=== PATIENT | male | born 1980 | race Caucasian/White ===

== ENCOUNTER 2019-02-26 13:35 | Outpatient (REF) | payer MEDICAID, SELFPAY ==
[2019-02-26 21:21] LABS: ALT 65 U/L (16-63); AST 41 U/L (15-37); Albumin 3.3 g/dL (3.4-5.0); Alkaline Phosphatase 69 U/L (46-116); Anion Gap 5.9 mmol/L (3-11); BUN 12 mg/dL (7-18); Bilirubin, Total 0.6 mg/dL (0.2-1.0); CO2 33.1 mmol/L (21.0-32.0); CREATININE 0.95 mg/dL (0.70-1.30); Calcium 9.1 mg/dL (8.5-10.1); Calculated LDL 124 mg/dL; Chloride 103 mmol/L (98-107); Cholesterol 219 mg/dL (<200); Glucose 105 mg/dL (74-106); HDL Cholesterol 40 mg/dL (40-60); Potassium 4.7 mmol/L (3.5-5.1); Sodium 142 mmol/L (136-145); Total Protein 7.1 g/dL (6.4-8.2); Triglyceride 278 mg/dL (<150)
== END 2019-02-26 13:55 ==
LOC: NCHCN 13:35
PROVIDERS: PCP Registered Nurse; Visit Provider Registered Nurse
DX: E78.2 Mixed hyperlipidemia (principal); E66.9 Obesity, unspecified
CPT/HCPCS: 80053; 80061

== ENCOUNTER 2020-01-25 17:49 | Outpatient (REF) | payer MEDICAID, SELFPAY ==
[2020-01-25 21:16] LABS: Hemoglobin A1C 5.2 % (<5.7)
[2020-01-25 21:32] LABS: ALT 77 U/L (16-63); AST 78 U/L (15-37); Albumin 3.8 g/dL (3.4-5.0); Alkaline Phosphatase 63 U/L (46-116); BUN 30 mg/dL (7-18); Bilirubin, Total 0.5 mg/dL (0.2-1.0); CREATININE 1.21 mg/dL (0.70-1.30); Calcium 9.1 mg/dL (8.5-10.1); Calculated LDL 97 mg/dL (<100); Chloride 103 mmol/L (98-107); Cholesterol 198 mg/dL (<200); Glucose 113 mg/dL (74-106); HDL Cholesterol 41 mg/dL (40-60); Potassium 4.6 mmol/L (3.5-5.1); Sodium 135 mmol/L (136-145); Total Protein 7.5 g/dL (6.4-8.2); Triglyceride 304 mg/dL (<150)
[2020-01-30 15:59] LABS: Testosterone, Free 2.88 ng/dL (4.46-17.1); Testosterone, Total 115 ng/dL (240-950)
== END 2020-01-25 18:09 ==
LOC: NCHCN 17:49
PROVIDERS: PCP Registered Nurse; Visit Provider Registered Nurse
DX: E66.9 Obesity, unspecified (principal); E29.1 Testicular hypofunction; R68.82 Decreased libido
CPT/HCPCS: 80053; 80061; 84402; 84403; 83036

== ENCOUNTER 2020-03-14 18:31 | Outpatient (REF) | payer MEDICAID, SELFPAY ==
[2020-03-14 18:02] LABS: HCT 44.5 % (40.0-50.0); HGB 14.6 g/dL (13.5-17.5); MCH 32.5 pg (27.0-33.0); MCHC 32.8 % (32.0-36.0); MCV 99.1 fL (80-95); MPV 10.4 fL (8.0-11.0); Platelet Count 224 10^3/uL (130-400); RBC 4.49 10^6/uL (4.36-5.78); RDW 12.9 % (11.8-14.1); RDW-SD 47.1 fL; WBC 15.16 10^3/uL (4.4-10.8)
[2020-03-14 18:41] LABS: TSH 1.03 uIU/mL (0.36-3.74)
[2020-03-17 11:06] LABS: FSH 2.9 mIU/mL (1.4-18.1)
[2020-03-17 11:10] LABS: LH 2.5 mIU/mL (1.5-9.3)
[2020-03-19 11:39] LABS: Testosterone, Total 161 ng/dL (240-950)
== END 2020-03-14 18:51 ==
LOC: NCHCN 18:31
PROVIDERS: PCP Registered Nurse; Visit Provider Registered Nurse
DX: R68.82 Decreased libido (principal); E29.1 Testicular hypofunction; I10 Essential (primary) hypertension; E78.2 Mixed hyperlipidemia; Z68.41 Body mass index [BMI] 40.0-44.9, adult; M79.18 Myalgia, other site
CPT/HCPCS: 84403; 85027; 83001; 83002; 84443

== ENCOUNTER 2021-07-08 10:54 | Outpatient (REF) | payer MEDICAID, SELFPAY ==
[2021-07-08 14:40] LABS: ALT 57 U/L (16-63); AST 41 U/L (15-37); Albumin 3.8 g/dL (3.4-5.0); Alkaline Phosphatase 73 U/L (46-116); Anion Gap 10.8 mmol/L (3-11); BUN 25 mg/dL (7-18); CO2 27.2 mmol/L (21.0-32.0); Calcium 8.9 mg/dL (8.5-10.1); Calculated LDL 104 mg/dL (<100); Chloride 101 mmol/L (98-107); Cholesterol 210 mg/dL (<200); Glucose 121 mg/dL (74-106); HDL Cholesterol 40 mg/dL (40-60); Potassium 4.7 mmol/L (3.5-5.1); Sodium 139 mmol/L (136-145); Total Protein 7.7 g/dL (6.4-8.2); Triglyceride 334 mg/dL (<150)
[2021-07-08 14:45] LABS: Hemoglobin A1C 5.4 % (<5.7)
[2021-07-08 14:52] LABS: Bilirubin, Total 0.6 mg/dL (0.2-1.0)
== END 2021-07-08 10:55 | disposition home or self-care (01) ==
LOC: NCHCN 10:54
PROVIDERS: PCP Registered Nurse; Visit Provider Registered Nurse
DX: E78.2 Mixed hyperlipidemia (principal); I10 Essential (primary) hypertension; F17.200 Nicotine dependence, unspecified, uncomplicated; Z13.1 Encounter for screening for diabetes mellitus; Z83.3 Family history of diabetes mellitus
CPT/HCPCS: 80053; 80061; 83036

== ENCOUNTER 2024-11-15 09:13 | Outpatient (REF) | payer MEDICAID, SELFPAY ==
[2024-11-15 15:19] LABS: Hemoglobin A1C 5.2 % (<5.7)
[2024-11-15 15:26] LABS: ALT 66 U/L (16-63); AST 52 U/L (15-37); Albumin 3.8 g/dL (3.4-5.0); Alkaline Phosphatase 65 U/L (46-116); Anion Gap 7.3 mmol/L (3-11); BUN 28 mg/dL (7-18); Bilirubin, Total 0.4 mg/dL (0.2-1.0); CO2 28.7 mmol/L (21.0-32.0); Calcium 9.6 mg/dL (8.5-10.1); Calculated LDL 152 mg/dL (<100); Chloride 101 mmol/L (98-107); Cholesterol 254 mg/dL (<200); Estimated GFR 76.00 (mL/min/1.73m2); Glucose 101 mg/dL (74-106); HDL Cholesterol 43 mg/dL (>or=40); Potassium 5.2 mmol/L (3.5-5.1); Sodium 137 mmol/L (136-145); TSH (W/Ref FT4) 0.92 uIU/mL (0.36-3.74); Total Protein 8.3 g/dL (6.4-8.2); Triglyceride 295 mg/dL (<150)
[2024-11-24 16:48] LABS: Testosterone, Free 0.75 ng/dL (4.26-16.4)
== END 2024-11-15 09:14 | disposition home or self-care (01) ==
LOC: NCHCN 09:13
PROVIDERS: PCP Registered Nurse; Visit Provider Family Medicine
DX: I10 Essential (primary) hypertension (principal); E78.2 Mixed hyperlipidemia; E29.1 Testicular hypofunction
CPT/HCPCS: 80053; 80061; 84402; 84403; 83036; 84443